=== PATIENT | female | born 1980 | race Caucasian/White ===

== ENCOUNTER 2018-12-20 03:02 | Emergency (ER) | payer BC, OTHER ==
[~2018-12-20] VITALS: Ht 160 cm; Wt 63.5 kg
[~2018-12-20 03:02] MED LIST: NAPROSYN500 MG PO
[2018-12-20] MEDS ORDERED: SYNTHROID50 MCG PO (03:15)
[2018-12-20] MEDS ORDERED: AMOXICILLIN 50500 MG PO (03:42)
[2018-12-20 03:56] VITALS: BP 134/74
== END 2018-12-20 03:56 | disposition home or self-care (01) ==
LOC: ER 03:02
DX: O99.511 Diseases of the respiratory system complicating pregnancy, first trimester (principal); J06.9 Acute upper respiratory infection, unspecified; J20.9 Acute bronchitis, unspecified; O99.111 Other diseases of the blood and blood-forming organs and certain disorders involving the immune mechanism complicating pregnancy, first trimester; D68.52 Prothrombin gene mutation; E03.9 Hypothyroidism, unspecified; Z3A.13 13 weeks gestation of pregnancy